=== PATIENT | female | born 1990 | race American Indian/Alaskan Native ===

== ENCOUNTER 2019-09-15 20:09 | Emergency (ER) | payer SELFPAY ==
[2019-09-15 20:26] VITALS: BP 117/73
[2019-09-15] MEDS ORDERED: SODIUM CHLORIDE 0.9% 1000 ML 1,000 ML IV ONE (20:58)
[2019-09-15] MEDS ORDERED: dexAMETHasone 20 MG/5 ML VIAL IV ONE (20:58)
[2019-09-15] MEDS ORDERED: diphenhydrAMINE 50 MG/ML VIAL IV ONE (20:58)
[2019-09-15] MEDS ORDERED: FAMOTIDINE 20 MG/2 ML INJ IV ONE (20:58)
--- NOTE | 2019-09-15 20:58 | Emergency Department Report ---
Blank Doc - Documentation Documentation: 29-year-old female that presents with rash after eating shellfish. No angioed dragan present. No facial swelling. Uvula midline. This initial assessment/diagnostic orders/clinical plan/treatment(s) is/are subject to change based on patient's health status, clinical progression and re- assessment by fellow clinical providers in the ED. Further treatment and workup at subsequent clinical providers discretion. Patient/guardians urged not to elope from the ED as their condition may be serious if not clinically assessed and managed. Initial orders include: 1- Patient sent to [facility] for further evaluation and treatment 2- treamjas-RN notified patient be brought back aldo
--- NOTE | 2019-09-15 22:02 | Emergency Department Report ---
ED Allergic Reaction HPI - General Chief complaint: Allergic Reaction Stated complaint: ALLERGIC REACTION/HIVES Time Seen by Provider: 09/15/19 20:56 Source: patient Mode of arrival: Ambulatory Limitations: No Limitations - History of Present Illness Initial Comments: Patient is a 29-year-old -[place] female with no past medical history presents to the ED with complaint of acute onset persistent nausea and vomiting, swollen throat with dysphagia, diffuse body itching with hives after she ate lobster that had been cooked about 3 hours ago. Patient states that this was the first time she was eating a lobster diet. Patient denies loss of consciousness, dizziness, abdominal pain, fever, chills, cough, swollen lips or tongue, facial swelling, nasal and sinus congestion or headache or cough and wheezing or shortness of breath. MD Complaint: allergic reaction, other (nausea, vomiting; dyphagia; swollen throat) -: Sudden, hour(s) (3) Exposure: food Symptoms: rash, itching, difficulty swallowing, hoarseness, nausea, vomiting Severity: severe Treatment Prior to Arrival: none Previous Allergy History: none - Related Data Previous Rx's Medication Instructions Recorded Last Taken Type HYDROcodone/APAP 5-325 [[place] 1 each PO Q6HR PRN #10 tablet 12/15/15 Unknown Rx 5/325] Famotidine [Pepcid] 20 mg PO Q12H #30 tablet 09/15/19 Unknown Rx Ondansetron [Zofran Odt] 4 mg PO Q6HR PRN #15 tab.rapdis 09/15/19 Unknown Rx Prednisone [predniSONE 10 mg 10 mg PO .TAPER #21 tab.ds.pk 09/15/19 Unknown Rx (6-Day Pack, 21 Tabs)] diphenhydrAMINE [Benadryl CAP] 25 mg PO Q6HR PRN #30 capsule 09/15/19 Unknown Rx Allergies Allergy/AdvReac Type Severity Reaction Status Date / Time Latex, Natural Rubber Allergy Swelling Verified 12/15/15 04:56 seafood Allergy Swelling Uncoded 12/15/15 04:57 ED Review of Systems ROS: Stated complaint: ALLERGIC REACTION/HIVES Other details as noted in HPI Constitutional: denies: chills, fever Eyes: denies: eye pain, eye discharge, vision change ENT: throat pain, other (dysphagia). denies: ear pain Respiratory: denies: cough, shortness of breath, wheezing Cardiovascular: denies: chest pain, palpitations Endocrine: no symptoms reported Gastrointestinal: nausea, vomiting. denies: abdominal pain, diarrhea Genitourinary: denies: urgency, dysuria, discharge Musculoskeletal: denies: back pain, joint swelling, arthralgia Skin: rash (diffuse itchy hives), change in color, pruritus. denies: lesions Neurological: denies: headache, weakness, paresthesias Psychiatric: denies: anxiety, depression Hematological/Lymphatic: denies: easy bleeding, easy bruising ED Past Medical Hx - Surgical History Additional Surgical History: c-sec x 1 - Social History Smoking Status: Never Smoker Substance Use Type: None - Medications Home Medications: Home Medications Medication Instructions Recorded Confirmed Last Taken Type HYDROcodone/APAP 5-325 [[place] 1 each PO Q6HR PRN #10 tablet 12/15/15 Unknown Rx 5/325] Famotidine [Pepcid] 20 mg PO Q12H #30 tablet 09/15/19 Unknown Rx Ondansetron [Zofran Odt] 4 mg PO Q6HR PRN #15 tab.rapdis 09/15/19 Unknown Rx Prednisone [predniSONE 10 mg 10 mg PO .TAPER #21 tab.ds.pk 09/15/19 Unknown Rx (6-Day Pack, 21 Tabs)] diphenhydrAMINE [Benadryl CAP] 25 mg PO Q6HR PRN #30 capsule 09/15/19 Unknown Rx ED Physical Exam - General Limitations: No Limitations General appearance: alert, in no apparent distress - Head Head exam: Present: atraumatic, normocephalic, normal inspection - Eye Eye exam: Present: normal appearance, PERRL, EOMI Pupils: Present: normal accommodation - ENT ENT exam: Present: normal exam, normal orophraynx, mucous membranes moist, TM's normal bilaterally, normal external ear exam - Neck Neck exam: Present: normal inspection, full ROM. Absent: tenderness, lymphadenopathy - Respiratory Respiratory exam: Present: normal lung sounds bilaterally. Absent: respiratory distress, wheezes, rales, rhonchi, chest wall tenderness, accessory muscle use, decreased breath sounds, prolonged expiratory - Cardiovascular Cardiovascular Exam: Present: regular rate, normal rhythm, normal heart sounds. Absent: bradycardia, systolic murmur, diastolic murmur, rubs, gallop - GI/Abdominal GI/Abdominal exam: Present: soft, normal bowel sounds. Absent: tenderness, guarding, rebound, hyperactive bowel sounds, hypoactive bowel sounds, organomegaly - Extremities Exam Extremities exam: Present: normal inspection, full ROM, normal capillary refill - Back Exam Back exam: Present: normal inspection, full ROM. Absent: tenderness, CVA tenderness (R), muscle spasm - Neurological Exam Neurological exam: Present: alert, oriented X3, CN II-XII intact, normal gait, reflexes normal - Psychiatric Psychiatric exam: Present: normal affect, normal mood - Skin Skin exam: Present: warm, dry, intact, normal color, rash (Diffuse erythematous maculopapular urticarial rashes mildly), erythema, urticaria ED Course Vital Signs 09/15/19 09/15/19 20:24 20:55 Temperature 97.8 F 97.8 F Pulse Rate 73 73 Respiratory 18 18 Rate Blood Pressure 117/73 117/73 O2 Sat by Pulse 100 100 Oximetry ED Medical Decision Making - Medical Decision Making This is a 29-year-old -[place] female with no past medical history who presents to the ED with complaint of acute onset persistent diffuse itchy erythematous maculopapular urticarial rashes with dysphagia, dysphonia, nausea and vomiting after eating seafood 3 hours ago. In the ED, patient is alert and oriented x3 and is not in distress. Patient was treated in the ED with Decadron, Benadryl and Pepcid. On reevaluation, patient symptoms resolved and patient is hemodynamically stable carrying out normal conversation and the hives have also resolved. Patient was discharged home on medications and advised to follow-up with her primary care physician in 7 to 10 days for reevaluation or return to the ED immediately if symptoms get worse. - Differential Diagnosis acute urticaria; itching; food allergy; Critical care attestation.: If time is entered above; I have spent that time in minutes in the direct care of this critically ill patient, excluding procedure time. ED Disposition Clinical Impression: Acute urticaria, Nausea and vomiting in adult, Allergic reaction to seafood Acute allergic reaction Qualifiers: Encounter type: initial encounter Qualified Code(s): T78.40XA - Allergy, unspecified, initial encounter Disposition: DC- TO HOME OR SELFCARE Is pt being admited?: No Does the pt Need Aspirin: No Condition: Stable Instructions: Allergies (ED), Food Allergy (ED), Urticaria (ED), Acute Nausea and Vomiting (ED) Additional Instructions: Take medication with food, drink plenty of fluids and follow-up with your primary care physician in 7 to 10 days for reevaluation. Return to the ED immediately if symptoms get worse. Prescriptions: diphenhydrAMINE [Benadryl CAP] 25 mg PO Q6HR PRN #30 capsule PRN Reason: Itching Famotidine [Pepcid] 20 mg PO Q12H #30 tablet Prednisone [predniSONE 10 mg (6-Day Pack, 21 Tabs)] 10 mg PO .TAPER #21 tab.ds.pk Ondansetron [Zofran Odt] 4 mg PO Q6HR PRN #15 tab.rapdis PRN Reason: Nausea Referrals: SHANA SOUTH MD [Staff Physician] - 7-10 days Forms: Work/School Release Form(ED) Time of Disposition: 22:07 Print Language: [place]
== END 2019-09-15 22:45 | disposition home or self-care (01) ==
LOC: ED 20:09
DX: L50.9 Urticaria, unspecified (principal); T78.1XXA Other adverse food reactions, not elsewhere classified, initial encounter; R11.2 Nausea with vomiting, unspecified; Z79.899 Other long term (current) drug therapy; Z91.040 Latex allergy status; Z91.013 Allergy to seafood
CPT/HCPCS: 96361; 96374; 96375; 99282; J1100; J1200; J7030

== ENCOUNTER 2019-10-18 17:35 | Emergency (ER) | payer SELFPAY ==
[2019-10-18 17:47] VITALS: BP 127/71
[2019-10-18] MEDS ORDERED: ACETAMINOPHEN 500 MG TAB PO ONE (19:36)
[2019-10-18] MEDS ORDERED: PHENAZOPYRIDINE 200 MG TAB PO ONE (19:36)
[2019-10-18 19:47] LABS: Bacteria,Urine 1+ /HPF (Negative); Bilirubin,Urine NEG (Negative); Blood,Urine MOD (Negative); Color,Urine Amber (Yellow)
[2019-10-18 19:48] LABS: HCG Qualitative,Urine Negative (Negative); WBC,Urine > 182.0 /HPF (0.0-6.0)
[2019-10-18] MEDS ORDERED: LIDOCAINE-MPF (1%) 10 MG/1 ML VIAL 5 ML INFILTRATI ONE (19:52)
[2019-10-18] MEDS ORDERED: ONDANSETRON 4 MG ODT TAB PO ONE (19:53)
--- NOTE | 2019-10-18 19:58 | Emergency Department Report ---
ED Female HPI - General Chief complaint: Urogenital-Female Stated complaint: UTI,PAIN URINING, ORANGE COLOR Source: patient Mode of arrival: Ambulatory Limitations: No Limitations - History of Present Illness Initial comments: Patient is a A0 29-year-old -[place] female with no past medical history who presents to the ED with complaint of acute onset persistent dysuria, urinary frequency and urgency and suprapubic pressure and pain for the last 2 days. Patient denies fever, chills, nausea, vomiting, diarrhea, dizziness, syncope, back pain, vaginal bleeding, vaginal discharge, headache, chest pain or shortness of breath or dyspareunia. MD Complaint: dysuria, pelvic pain (suprapubic pressure and pain), other (urinary urgency and frequency) -: Sudden, days(s) (2) Location: suprapubic Radiation: non-radiating Severity: moderate Severity scale (0 -10): 6 Quality: sharp, aching Consistency: constant Improves with: none Worsens with: urination Are you Now?: No Last Menstrual Period: 08/02/19 EDC: 05/08/20 Associated Symptoms: denies other symptoms, abdominal pain (suprapubic), dysuria. denies: vaginal discharge, vaginal bleeding, nausea/vomiting, fever/chills, headaches, loss of appetite, hematuria, rash, seizure, shortness of breath, syncope, weakness, other - Related Data Sexually active: Yes : 2 Para: 2 A: 0 Previous Rx's Medication Instructions Recorded Last Taken Type HYDROcodone/APAP 5-325 [[place] 1 each PO Q6HR PRN #10 tablet 12/15/15 Unknown Rx 5/325] Famotidine [Pepcid] 20 mg PO Q12H #30 tablet 09/15/19 Unknown Rx Prednisone [predniSONE 10 mg 10 mg PO .TAPER #21 tab.ds.pk 09/15/19 Unknown Rx (6-Day Pack, 21 Tabs)] diphenhydrAMINE [Benadryl CAP] 25 mg PO Q6HR PRN #30 capsule 09/15/19 Unknown Rx Ibuprofen [Motrin] 600 mg PO Q8H PRN #20 tablet 10/18/19 Unknown Rx Ondansetron [Zofran ODT TAB] 4 mg PO Q6HR PRN #15 tab.rapdis 10/18/19 Unknown Rx Phenazopyridine [Pyridium] 200 mg PO Q8H PRN #21 tab 10/18/19 Unknown Rx cephALEXin [Keflex] 500 mg PO Q6HR #40 capsule 10/18/19 Unknown Rx Allergies Allergy/AdvReac Type Severity Reaction Status Date / Time Latex, Natural Rubber Allergy Swelling Verified 12/15/15 04:56 seafood Allergy Swelling Uncoded 12/15/15 04:57 ED Review of Systems ROS: Stated complaint: UTI,PAIN URINING, ORANGE COLOR Other details as noted in HPI Constitutional: denies: chills, fever Eyes: denies: eye pain, eye discharge, vision change ENT: denies: ear pain, throat pain Respiratory: denies: cough, shortness of breath, wheezing Cardiovascular: denies: chest pain, palpitations Endocrine: no symptoms reported Gastrointestinal: abdominal pain (suprapubic). denies: nausea, diarrhea Genitourinary: urgency, dysuria, frequency. denies: hematuria, discharge, abnormal menses, dyspareunia, other Musculoskeletal: denies: back pain, joint swelling, arthralgia Skin: denies: rash, lesions Neurological: denies: headache, weakness, paresthesias Psychiatric: denies: anxiety, depression Hematological/Lymphatic: denies: easy bleeding, easy bruising ED Past Medical Hx - Past Medical History Previous Medical History?: No - Surgical History Additional Surgical History: c-sec x 1 - Social History Smoking Status: Never Smoker Substance Use Type: Alcohol - Medications Home Medications: Home Medications Medication Instructions Recorded Confirmed Last Taken Type HYDROcodone/APAP 5-325 [[place] 1 each PO Q6HR PRN #10 tablet 12/15/15 Unknown Rx 5/325] Famotidine [Pepcid] 20 mg PO Q12H #30 tablet 09/15/19 Unknown Rx Prednisone [predniSONE 10 mg 10 mg PO .TAPER #21 tab.ds.pk 09/15/19 Unknown Rx (6-Day Pack, 21 Tabs)] diphenhydrAMINE [Benadryl CAP] 25 mg PO Q6HR PRN #30 capsule 09/15/19 Unknown Rx Ibuprofen [Motrin] 600 mg PO Q8H PRN #20 tablet 10/18/19 Unknown Rx Ondansetron [Zofran ODT TAB] 4 mg PO Q6HR PRN #15 tab.rapdis 10/18/19 Unknown Rx Phenazopyridine [Pyridium] 200 mg PO Q8H PRN #21 tab 10/18/19 Unknown Rx cephALEXin [Keflex] 500 mg PO Q6HR #40 capsule 10/18/19 Unknown Rx ED Physical Exam - General Limitations: No Limitations General appearance: alert, in no apparent distress - Head Head exam: Present: atraumatic, normocephalic, normal inspection - Eye Eye exam: Present: normal appearance, PERRL, EOMI Pupils: Present: normal accommodation - ENT ENT exam: Present: normal exam, normal orophraynx, mucous membranes moist, TM's normal bilaterally, normal external ear exam - Neck Neck exam: Present: normal inspection, full ROM - Respiratory Respiratory exam: Present: normal lung sounds bilaterally. Absent: respiratory distress, wheezes, rales, rhonchi, chest wall tenderness, accessory muscle use, prolonged expiratory - Cardiovascular Cardiovascular Exam: Present: regular rate, normal rhythm, normal heart sounds. Absent: systolic murmur, diastolic murmur, rubs, gallop - GI/Abdominal GI/Abdominal exam: Present: soft, normal bowel sounds. Absent: tenderness, guarding, hyperactive bowel sounds, hypoactive bowel sounds - Bi-manual exam: Present: other (pelvic exam deferred) - Extremities Exam Extremities exam: Present: normal inspection, full ROM, normal capillary refill - Back Exam Back exam: Present: normal inspection, full ROM. Absent: tenderness, CVA tenderness (R), muscle spasm - Neurological Exam Neurological exam: Present: alert, oriented X3, CN II-XII intact, normal gait, reflexes normal - Psychiatric Psychiatric exam: Present: normal affect, normal mood - Skin Skin exam: Present: warm, dry, intact, normal color. Absent: rash ED Course Vital Signs 10/18/19 17:45 Temperature 98.7 F Pulse Rate 73 Respiratory 16 Rate Blood Pressure 127/71 O2 Sat by Pulse 100 Oximetry ED Medical Decision Making - Medical Decision Making This is a A0 29-year-old -[place] female with no past medical history who presented to the ED with complaint of acute onset persistent suprapubic pressure and pain, dysuria, urinary frequency and urgency for the last 2 days. In the ED, patient is alert and oriented x3 and is not in any distress with normal vital signs. Urinalysis shows significant urinary tract infection characterized by positive nitrites, moderate hematuria, small leukocyte esterase, 1+ bacteriuria and > 182 WBCs in urine. Patient was treated in the ED for urinary tract infection initially with Rocephin 1 g intramuscular injection. Patient also received Pyridium 200 mg p.o. x1 and Tylenol 1 g p.o. x1. On reevaluation, patient's discomfort improved and patient will discharge home on antibiotics and advised to follow-up with her primary care physician or [facility] physician in 7 to 10 days for reevaluation or return to the ED immediately if symptoms get worse. - Differential Diagnosis Cystitis/UTI; ; PID; Kidney stones; Ovarian cyst Critical care attestation.: If time is entered above; I have spent that time in minutes in the direct care of this critically ill patient, excluding procedure time. ED Disposition Clinical Impression: Acute urinary tract infection Abdominal pain Qualifiers: Abdominal location: lower abdomen, unspecified Qualified Code(s): R10.30 - Lower abdominal pain, unspecified Disposition: TO HOME OR SELFCARE Is pt being admited?: No Does the pt Need Aspirin: No Condition: Stable Instructions: Urinary Tract Infection in Women (ED), Abdominal Pain (ED) Additional Instructions: Your urinalysis test showed significant urinary tract infection. Therefore take medications with food, drink plenty of fluids and follow-up with your primary care physician or [facility] physician in 7 to 10 days for reevaluation. Return to the ED immediately if symptoms get worse. Prescriptions: cephALEXin [Keflex] 500 mg PO Q6HR #40 capsule Ibuprofen [Motrin] 600 mg PO Q8H PRN #20 tablet PRN Reason: Pain Phenazopyridine [Pyridium] 200 mg PO Q8H PRN #21 tab PRN Reason: DYSURIA Ondansetron [Zofran ODT TAB] 4 mg PO Q6HR PRN #15 tab.rapdis PRN Reason: Nausea Referrals: [facility] [Provider Group] - 7-10 days Time of Disposition: 20:00 Print Language: [place]
== END 2019-10-18 20:26 | disposition home or self-care (01) ==
LOC: ED 17:35
DX: N39.0 Urinary tract infection, site not specified (principal); R10.9 Unspecified abdominal pain; Z79.899 Other long term (current) drug therapy; Z98.890 Other specified postprocedural states; Z91.013 Allergy to seafood; Z91.040 Latex allergy status; Z91.048 Other nonmedicinal substance allergy status
CPT/HCPCS: 81001; 81025; 96372; 99283; J0696; Q0162